=== PATIENT | male | born 2000 | race Asian ===

== ENCOUNTER 2023-03-31 17:37 | Emergency (ER) | payer BC ==
[~2023-03-31] VITALS: Ht 162.6 cm; Wt 58.0 kg
[2023-03-31 17:44] VITALS: O2SAT 100
[2023-03-31 17:54] VITALS: BP 130/82; PULSE 124; RESP 18; TEMP 98.5
== END 2023-03-31 18:30 | disposition left against medical advice (07) ==
LOC: ER 17:37
DX: Z53.21 Procedure and treatment not carried out due to patient leaving prior to being seen by health care provider (principal)
CPT/HCPCS: 99281